=== PATIENT | female | born 1950 | race Caucasian/White ===

== ENCOUNTER 2016-12-01 22:59 | Emergency (ER) | payer OTHER | END 2016-12-02 03:06 | disposition home or self-care (01) | LOC: ER 22:59 | DX: J06.9 Acute upper respiratory infection, unspecified (principal); J02.9 Acute pharyngitis, unspecified; R09.82 Postnasal drip; J44.9 Chronic obstructive pulmonary disease, unspecified; M19.90 Unspecified osteoarthritis, unspecified site; Z79.899 Other long term (current) drug therapy; Z88.6 Allergy status to analgesic agent; Z88.8 Allergy status to other drugs, medicaments and biological substances ==

== ENCOUNTER 2016-12-31 10:42 | Observation (INO) | payer OTHER | END 2017-01-02 10:30 | disposition other institution (70) | LOC: ER 10:42 → MS 16:42 | PROVIDERS: ADMIT Family Medicine | DX: N39.0 Urinary tract infection, site not specified (principal); B96.20 Unspecified Escherichia coli [E. coli] as the cause of diseases classified elsewhere; Z16.24 Resistance to multiple antibiotics; J44.1 Chronic obstructive pulmonary disease with (acute) exacerbation; D72.829 Elevated white blood cell count, unspecified; N18.2 Chronic kidney disease, stage 2 (mild); D64.9 Anemia, unspecified; R53.1 Weakness; N95.0 Postmenopausal bleeding; R10.2 Pelvic and perineal pain; M06.9 Rheumatoid arthritis, unspecified; N28.89 Other specified disorders of kidney and ureter; N12 Tubulo-interstitial nephritis, not specified as acute or chronic; N13.30 Unspecified hydronephrosis; R31.9 Hematuria, unspecified; R10.30 Lower abdominal pain, unspecified; F41.9 Anxiety disorder, unspecified; F32.9 Major depressive disorder, single episode, unspecified; E78.5 Hyperlipidemia, unspecified; Z79.82 Long term (current) use of aspirin; Z79.899 Other long term (current) drug therapy; Z88.6 Allergy status to analgesic agent; Z80.9 Family history of malignant neoplasm, unspecified; Z82.49 Family history of ischemic heart disease and other diseases of the circulatory system | CPT/HCPCS: 36415; 71020; 74150; 76856; 80048; 80053; 81001; 83605; 85025; 86304; 87086; 94640; 94664; 96361; 96365; 96366; 96367; 96372; 96375; 96376; 99070; 99284-25; G0378 ==

== ENCOUNTER 2016-12-31 10:42 | Inpatient (IN) | payer OTHER ==
[~2016-12-31] VITALS: Ht 162.6 cm; Wt 88.0 kg
[2016-12-31 11:10] LABS: URINE BILIRUBIN 1+ (NEGATIVE); URINE BLOOD 3+ (NEGATIVE); URINE GLUCOSE (UA) NORMAL (NORMAL); URINE KETONE TRACE (NEGATIVE); URINE LEUKOCYTE ESTERASE 2+ (NEGATIVE); URINE NITRATE POSITIVE (NEGATIVE); URINE PROTEIN 3+ (NEGATIVE)
[2016-12-31 11:38] LABS: URINE BACTERIA 3+ (NONE SEEN); URINE RBC 0-5 /[HPF] (0-2); URINE SQUAMOUS EPITHELIAL CELL 0-10 /[HPF] (NONE SEEN); URINE WBC TNTC /[HPF] (0-5)
[2016-12-31 11:48] LABS: BASO % 1.3 % (0.1-1.2); EOS # 0.1 10_X3_uL (0.0-0.4); GRAN # 2.4 10_X3_uL (1.6-6.1); HEMATOCRIT 39.6 % (34-45); HEMOGLOBIN 12.3 g/dL (11.2-15.7); LYMPH # 0.4 10_X3_uL (1.2-3.7); LYMPH % 13.4 % (19.3-51.7); MEAN CORPUSCULAR HEMOGLOBIN 31.1 pg (27.0-33.0); MEAN CORPUSCULAR HGB CONC 31.1 g/dL (32.0-36.0); MEAN CORPUSCULAR VOLUME 100.3 fL (79-95); MEAN PLATELET VOLUME 10.5 fl (7.5-11.5); MONO % 0.3 % (4.7-12.5); PLATELET COUNT 457 x10_3/uL (182-369); RED BLOOD COUNT 3.95 x10_6/uL (3.9-5.2); RED CELL DISTRIBUTION WIDTH 13.6 % (11.7-14.4)
[2016-12-31 12:13] LABS: ALBUMIN 4.1 gm/dL (3.4-5.0); BILIRUBIN,TOTAL 0.31 mg/dL (0.0-1.0); CALCIUM 9.3 mg/dL (8.7-10.7); CREATININE 1.1 mg/dL (0.6-1.3); POTASSIUM 4.3 mmol/L (3.5-5.1); TOTAL PROTEIN 7.6 gm/dL (6.4-8.2)
[2017-01-01 07:47] LABS: CALCIUM 7.7 mg/dL (8.7-10.7); CREATININE 1.4 mg/dL (0.6-1.3); POTASSIUM 4.5 mmol/L (3.5-5.1)
[2017-01-01 07:51] LABS: BASO # 0.1 10_X3_uL (0.0-0.1); BASO % 0.2 % (0.1-1.2); EOS % 0.2 % (0.7-5.8); GRAN # 21.8 10_X3_uL (1.6-6.1); GRAN % 90.9 % (34.0-71.1); HEMATOCRIT 30.3 % (34-45); HEMOGLOBIN 9.4 g/dL (11.2-15.7); LYMPH # 1.1 10_X3_uL (1.2-3.7); LYMPH % 4.5 % (19.3-51.7); MEAN CORPUSCULAR HEMOGLOBIN 31.2 pg (27.0-33.0); MEAN CORPUSCULAR VOLUME 100.7 fL (79-95); MEAN PLATELET VOLUME 11.1 fl (7.5-11.5); MONO % 4.2 % (4.7-12.5); PLATELET COUNT 364 x10_3/uL (182-369); RED BLOOD COUNT 3.01 x10_6/uL (3.9-5.2); RED CELL DISTRIBUTION WIDTH 13.6 % (11.7-14.4)
[2017-01-01 19:53] LABS: HEMATOCRIT 31.2 % (34-45); HEMOGLOBIN 9.6 g/dL (11.2-15.7); MEAN CORPUSCULAR HGB CONC 30.8 g/dL (32.0-36.0); MEAN CORPUSCULAR VOLUME 100.6 fL (79-95); RED BLOOD COUNT 3.1 x10_6/uL (3.9-5.2); RED CELL DISTRIBUTION WIDTH 13.7 % (11.7-14.4)
[2017-01-01 20:03] LABS: CALCIUM 8.1 mg/dL (8.7-10.7); CREATININE 1.4 mg/dL (0.6-1.3); POTASSIUM 4.1 mmol/L (3.5-5.1)
[2017-01-01 20:04] LABS: WHITE BLOOD COUNT 21.9 x10_3/uL (4.0-10.0)
[2017-01-02 03:22] LABS: CKMB 1.9 ng/ml (0.0-5.0)
[2017-01-02 03:51] LABS: TROP-I < 0.30 NG/ML (0.00-0.30)
[2017-01-02 08:22] LABS: HEMATOCRIT 32.3 % (34-45); HEMOGLOBIN 9.9 g/dL (11.2-15.7); MEAN CORPUSCULAR HEMOGLOBIN 30.9 pg (27.0-33.0); MEAN CORPUSCULAR HGB CONC 30.7 g/dL (32.0-36.0); MEAN CORPUSCULAR VOLUME 100.9 fL (79-95); MEAN PLATELET VOLUME 10.8 fl (7.5-11.5); RED BLOOD COUNT 3.2 x10_6/uL (3.9-5.2); RED CELL DISTRIBUTION WIDTH 13.7 % (11.7-14.4); WHITE BLOOD COUNT 19.2 x10_3/uL (4.0-10.0)
[2017-01-02 08:36] LABS: CALCIUM 8.2 mg/dL (8.7-10.7); CKMB 2.7 ng/ml (0.0-5.0); CREATININE 1.1 mg/dL (0.6-1.3); POTASSIUM 4.2 mmol/L (3.5-5.1)
[2017-01-02 08:37] LABS: TROP-I < 0.30 NG/ML (0.00-0.30)
[2017-01-02 14:56] LABS: CKMB 2.4 ng/ml (0.0-5.0)
[2017-01-02 14:57] LABS: TROP-I < 0.30 NG/ML (0.00-0.30)
[2017-01-02 16:16] LABS: CKMB 2.7 ng/ml (0.0-5.0)
[2017-01-02 16:21] LABS: TROP-I < 0.30 NG/ML (0.00-0.30)
[2017-01-02 21:10] LABS: CKMB 2.1 ng/ml (0.0-5.0)
[2017-01-02 21:12] LABS: TROP-I < 0.30 NG/ML (0.00-0.30)
[2017-01-04 06:23] LABS: BASO # 0.1 10_X3_uL (0.0-0.1); BASO % 0.6 % (0.1-1.2); EOS # 0.3 10_X3_uL (0.0-0.4); EOS % 2.9 % (0.7-5.8); GRAN # 7.9 10_X3_uL (1.6-6.1); GRAN % 74.5 % (34.0-71.1); HEMATOCRIT 30.9 % (34-45); HEMOGLOBIN 9.1 g/dL (11.2-15.7); LYMPH # 1.1 10_X3_uL (1.2-3.7); LYMPH % 10.5 % (19.3-51.7); MEAN CORPUSCULAR HGB CONC 29.4 g/dL (32.0-36.0); MONO # 1.2 10_X3_uL (0.2-0.9); MONO % 11.5 % (4.7-12.5); PLATELET COUNT 363 x10_3/uL (182-369); RED BLOOD COUNT 3.03 x10_6/uL (3.9-5.2); RED CELL DISTRIBUTION WIDTH 13.9 % (11.7-14.4); WHITE BLOOD COUNT 10.6 x10_3/uL (4.0-10.0)
[2017-01-04 06:33] LABS: CALCIUM 8.1 mg/dL (8.7-10.7); POTASSIUM 4.2 mmol/L (3.5-5.1)
[2017-01-05 07:07] LABS: HEMATOCRIT 31.7 % (34-45); HEMOGLOBIN 9.8 g/dL (11.2-15.7); MEAN CORPUSCULAR HGB CONC 30.9 g/dL (32.0-36.0); MEAN CORPUSCULAR VOLUME 100.3 fL (79-95); MEAN PLATELET VOLUME 10.7 fl (7.5-11.5); RED BLOOD COUNT 3.16 x10_6/uL (3.9-5.2); RED CELL DISTRIBUTION WIDTH 13.7 % (11.7-14.4); WHITE BLOOD COUNT 12.4 x10_3/uL (4.0-10.0)
[2017-01-05 07:18] LABS: ALBUMIN 2.7 gm/dL (3.4-5.0); ALKALINE PHOSPHATASE 123 U/L (50-136); ALT/SGPT 16 U/L (3.5-33.9); AST/SGOT 21 U/L (7.04-26.96); BILIRUBIN,TOTAL 0.16 mg/dL (0.0-1.0); BLOOD UREA NITROGEN 18 mg/dL (7-18); CALCIUM 8.7 mg/dL (8.7-10.7); CARBON DIOXIDE 30 mmol/L (21-32); CREATININE 0.9 mg/dL (0.6-1.3); GLUCOSE,RANDOM 94 mg/dL (70-99); POTASSIUM 4.5 mmol/L (3.5-5.1); SODIUM 148 mmol/L (136-145); TOTAL PROTEIN 5.8 gm/dL (6.4-8.2)
[2017-01-05 07:56] LABS: URINE BILIRUBIN NEGATIVE (NEGATIVE); URINE BLOOD 3+ (NEGATIVE); URINE GLUCOSE (UA) NORMAL (NORMAL); URINE KETONE NEGATIVE (NEGATIVE); URINE LEUKOCYTE ESTERASE TRACE (NEGATIVE); URINE NITRATE NEGATIVE (NEGATIVE); URINE PROTEIN TRACE (NEGATIVE); UROBILINOGEN NORMAL mg/dL (<1.0)
[2017-01-05 08:18] LABS: URINE BACTERIA TRACE (NONE SEEN); URINE RBC TNTC /[HPF] (0-2); URINE SQUAMOUS EPITHELIAL CELL 0-10 /[HPF] (NONE SEEN); URINE WBC 0-5 /[HPF] (0-5)
== END 2017-01-06 11:45 | disposition home or self-care (01) | DRG 690 ==
LOC: ER 10:42 → MS 16:42
PROVIDERS: Emergency Medicine; Family Medicine; ADMIT Family Medicine
DX: N39.0 Urinary tract infection, site not specified (principal); J44.1 Chronic obstructive pulmonary disease with (acute) exacerbation; B96.20 Unspecified Escherichia coli [E. coli] as the cause of diseases classified elsewhere; Z16.24 Resistance to multiple antibiotics; D72.829 Elevated white blood cell count, unspecified; N18.2 Chronic kidney disease, stage 2 (mild); D64.9 Anemia, unspecified; R53.1 Weakness; N95.0 Postmenopausal bleeding; R10.2 Pelvic and perineal pain; R11.2 Nausea with vomiting, unspecified; M06.9 Rheumatoid arthritis, unspecified; N28.89 Other specified disorders of kidney and ureter; N12 Tubulo-interstitial nephritis, not specified as acute or chronic; N13.30 Unspecified hydronephrosis; R31.9 Hematuria, unspecified; R10.30 Lower abdominal pain, unspecified; F41.9 Anxiety disorder, unspecified; F32.9 Major depressive disorder, single episode, unspecified; E78.5 Hyperlipidemia, unspecified; Z79.82 Long term (current) use of aspirin; Z79.899 Other long term (current) drug therapy; Z88.6 Allergy status to analgesic agent; Z80.9 Family history of malignant neoplasm, unspecified; Z82.49 Family history of ischemic heart disease and other diseases of the circulatory system
CPT/HCPCS: 36415; 71020; 74150; 76856; 78582; 80048; 80053; 81001; 82550; 82553; 83605; 85025; 85379; 86304; 87086; 87186; 93005; 93041; 94640; 94664; 96361; 96365; 96372; 96375; 99070; 99284-25; A9539; A9540; J1335